=== PATIENT | female | born 1970 | race Caucasian/White ===

== ENCOUNTER 2024-10-17 11:41 | Inpatient (IN) | payer BC ==
[2024-10-17 12:39] VITALS: BMI 65.4
[2024-10-17] MEDS ORDERED: Ondansetron ODT 4 MG TAB PO PRN (12:57)
[2024-10-17] MEDS ORDERED: traMADol HCl 50 MG TAB PO PRN ×2 (12:57)
[2024-10-17] MEDS ORDERED: Acetaminophen 325 MG TAB PO PRN (12:57)
[2024-10-17] MEDS ORDERED: Ondansetron PF 4 MG/2 ML Vial IVP PRN (13:10)
[2024-10-17] MEDS ORDERED: Morphine 4 MG/ML VIAL SLOW IVP PRN (13:10)
[2024-10-17] MEDS ORDERED: Morphine 2 MG/ML VIAL SLOW IVP PRN (13:10)
[2024-10-17] MEDS: Piperacillin/Tazobactam 3.375 GM in Sodium Chloride 0.9% 100 ML IVPB SCH ×2 (13:45→17:26)
[2024-10-17] MEDS ORDERED: Piperacillin/Tazobactam 4.5 GM in Sodium Chloride 0.9% 100 ML IVPB SCH (14:00)
[2024-10-17] MEDS: Lactated Ringer's 1,000 ML IV SCH (15:24)
[2024-10-17] MEDS: Atorvastatin Calcium 20 MG TAB PO SCH (20:39)
[2024-10-17] MEDS: traZODone HCl 50 MG TAB PO SCH (20:39)
[2024-10-17] MEDS: Gabapentin 300 MG CAP PO SCH (20:39)
[2024-10-18 00:53] LABS: Campy jejuni + coli by PCR Negative (Negative); STEC Shiga Toxin 1+2 Negative (Negative); Salmonella spp. by PCR Negative (Negative); Shigella spp + EIEC by PCR Negative (Negative)
[2024-10-18 04:49] LABS: #Basophils 0.05 10x3/uL (0.0-0.2); #Eosinophils 1.04 10x3/uL (0.0-0.5); #Monocytes 0.66 10x3/uL (0.0-1.1); #Neutrophils 9.28 10x3/uL (1.5-8.4); %Basophils 0.4 % (0.0-2.0); %Eosinophils 7.3 % (0.0-6.0); %Lymphocytes 20.4 % (18.0-47.0); %Monocytes 4.7 % (0.0-10.0); %Neutrophils 65.6 % (40.0-75.0); Hematocrit 29.7 % (34.9-44.5); Hemoglobin 9.5 g/dL (12.0-15.5); Mean Corpuscular Hemoglobin 28.6 pg (27.0-33.0); Mean Corpuscular Volume 89.5 fL (81.6-98.3); Mean Platelet Volume 10.2 fL (7.4-10.4); Platelet Count 242 10x3/uL (150-450); RBC Distribution Width 15.3 % (11.5-14.5); Red Blood Cell (RBC) Count 3.32 10x6/uL (3.90-5.03); White Blood Cell (WBC) Count 14.15 10x3/uL (3.5-10.5)
[2024-10-18 05:02] LABS: Anion Gap 11 mmol/L (10-20); BUN (Urea Nitrogen) 23 mg/dL (9.8-20.1); Calc. Creatinine Clearance 106 mL/min (70-130); Calcium 8.2 mg/dL (7.8-10.44); Carbon Dioxide 23 mmol/L (22-29); Chloride 109 mmol/L (98-107); Estimated GFR 43; Glucose 134 mg/dL (70-105); Potassium 4.1 mmol/L (3.5-5.1); Sodium 139 mmol/L (136-145)
[2024-10-18] MEDS: Enoxaparin 40 MG (0.4 mL) SYRINGE SC SCH (08:03)
[2024-10-18] MEDS: Vancomycin HCl 125 MG Capsule PO SCH (08:31)
[2024-10-18] MEDS: traZODone HCl 50 MG TAB PO SCH (22:05)
[2024-10-18] MEDS: Gabapentin 300 MG CAP PO SCH (22:05)
[2024-10-19 05:06] LABS: #Basophils 0.05 10x3/uL (0.0-0.2); #Eosinophils 1.01 10x3/uL (0.0-0.5); #Neutrophils 7.95 10x3/uL (1.5-8.4); %Basophils 0.4 % (0.0-2.0); %Eosinophils 8.1 % (0.0-6.0); %Lymphocytes 21.7 % (18.0-47.0); Hematocrit 30.1 % (34.9-44.5); Hemoglobin 9.5 g/dL (12.0-15.5); Mean Corpuscular HGB CONC 31.6 g/dL (32.0-36.0); Mean Corpuscular Hemoglobin 28.4 pg (27.0-33.0); Mean Corpuscular Volume 90.1 fL (81.6-98.3); Mean Platelet Volume 10.3 fL (7.4-10.4); Platelet Count 234 10x3/uL (150-450); RBC Distribution Width 15.3 % (11.5-14.5); Red Blood Cell (RBC) Count 3.34 10x6/uL (3.90-5.03); White Blood Cell (WBC) Count 12.44 10x3/uL (3.5-10.5)
[2024-10-19 05:21] LABS: Anion Gap 11 mmol/L (10-20); BUN (Urea Nitrogen) 19 mg/dL (9.8-20.1); Calc. Creatinine Clearance 112 mL/min (70-130); Calcium 8.4 mg/dL (7.8-10.44); Carbon Dioxide 23 mmol/L (22-29); Chloride 109 mmol/L (98-107); Estimated GFR 47; Glucose 145 mg/dL (70-105); Sodium 139 mmol/L (136-145)
[2024-10-19] MEDS: Escitalopram Oxalate 20 mg Tablet PO SCH (09:00)
[2024-10-19] MEDS ORDERED: Pantoprazole 40 MG DR.TAB PO SCH (09:00)
[2024-10-19] MEDS: Famotidine 20 MG TAB PO SCH (09:31)
[2024-10-19 09:35] VITALS: BP 115/59; TEMP 97.9
[2024-10-19] MEDS ORDERED: traZODone HCl 50 MG TAB PO SCH (21:00)
[2024-10-19] MEDS ORDERED: Atorvastatin Calcium 20 MG TAB PO SCH (21:00)
[2024-10-19] MEDS ORDERED: Famotidine 20 MG TAB PO SCH (21:00)
[2024-10-19] MEDS ORDERED: Gabapentin 300 MG CAP PO SCH (21:00)
== END 2024-10-19 10:27 | disposition home or self-care (01) | DRG 372 ==
LOC: CSHTELE 11:41 → INTOOBSV 11:41 → OBSVTOIN 12:57
PROVIDERS: ADMIT Family Medicine; ATTEND Internal Medicine
DX: A04.72 Enterocolitis due to Clostridium difficile, not specified as recurrent (principal); Z68.44 Body mass index [BMI] 60.0-69.9, adult; K43.9 Ventral hernia without obstruction or gangrene; F41.8 Other specified anxiety disorders; N18.30 Chronic kidney disease, stage 3 unspecified; I50.9 Heart failure, unspecified; Z90.49 Acquired absence of other specified parts of digestive tract; E66.9 Obesity, unspecified; K21.9 Gastro-esophageal reflux disease without esophagitis; Z79.899 Other long term (current) drug therapy
CPT/HCPCS: 74018; 80048; 85025; 87324; 87449; 87505; 94760; J1650; J2543; J7120